=== PATIENT | male | born 1950 | race Asian ===

== ENCOUNTER 2018-01-26 17:07 | Emergency (ER) | payer OTHER, BC ==
--- OUTSIDE RECORDS SUMMARY | 2018-01-26 17:10 | XMS REPORT | Clinical Summary ---
:1950 Author Organization [facility] Address [address] [place] [address] Care Team Providers Name Role Phone Uche Gary MD Primary Care Provider Allergies No Known Allergies Current Medications Prescription Sig. Disp. Refills Start Date End Date Status metFORMIN (GLUCOPHAGE) Take 500 mg by Active 500 mg tablet mouth 2 (two) times a day with meals. atorvastatin (LIPITOR) Take 20 mg by Active 20 MG tablet mouth daily. Default OP ins oxybutynin XL Take 1 tablet 30 tablet 11 11/02/2017 11/02/2018 Active (DITROPAN XL) 10 MG 24 (10 mg total) by hr tabletIndications: mouth daily. NATALIE (stress urinary incontinence), male pregabalin (LYRICA Take by mouth. Active ORAL) duloxetine HCl Take by mouth. Active (DULOXETINE ORAL) Hospital, Clinic, or Other Ordered Dose Route Frequency Start Date End Date Status Facility Administered Medication leuprolide (LUPRON) 22.5 mg IM once 12/07/2017 12/07/2017 Ended injection 22.5 mgIndications: Malignant neoplasm of prostate (HCC) Active Problems Problem Noted Date PSA elevation 11/14/2017 Prostate cancer (HCC) 11/14/2017 Encounters Date Type Specialty Care Team Description 01/23/2018 Office Visit Oncology Angel Oropeza Prostate cancer (HCC) MD Go (Primary Dx) 01/10/2018 Orders Only Oncology Marlena Santa MA Prostate cancer (HCC) (Primary Dx) 12/07/2017 Clinical Support Urology Uche Gary MD Malignant neoplasm of prostate (Primary Dx) 12/07/2017 Procedure visit Urology Rafaela Lindsey MD Urinary frequency ( Primary Dx); NATALIE (stress urinary incontinence), male 12/06/2017 Telephone Urology Lluvia De Oliveira LVN 11/15/2017 Telephone Urology Uche Gary MD 11/14/2017 Office Visit Oncology Angel Oropeza PSA elevation (Primary Dx) ; MD Go Prostate cancer 11/02/2017 Transcribe Orders Urology Uche Gary MD NATALIE (stress urinary incontinence), male (Primary Dx) 10/25/2017 Office Visit Urology Uche Gary MD Malignant neoplasm of prostate (Primary Dx); NATALIE (stress urinary incontinence), male 05/10/2017 Office Visit Urology Jamie Harris MD Malignant neoplasm of Uche Gary MD prostate (Primary Dx) after 01/25/2017 Family History Medical History Relation Name Comments Cancer Father Prostate cancer Father Relation Name Status Comments Father Mother Social History Tobacco Use Types Packs/Day Years Used Date Never Smoker Smokeless Tobacco: Never Used Alcohol Use Drinks/Week oz/Week Comments No Sex Assigned at Date Recorded Not on file Last Filed Vital Signs Vital Sign Reading Time Taken Blood Pressure 110/68 01/23/2018 11:10 AM CDT Pulse 89 01/23/2018 11:10 AM CDT Temperature 36.8 C (98.2 F) 01/23/2018 11:10 AM CDT Respiratory Rate - - Oxygen Saturation 97% 01/23/2018 11:10 AM CDT Inhaled Oxygen Concentration - - Weight 83 kg (183 lb) 01/23/2018 11:10 AM CDT Height - - Body Mass Index - - Plan of Treatment Date Type Specialty Care Team Description 02/01/2018 Office Visit Physical Therapy Rafaela Lindsey MD [address] [facility] [place] [address] Neda Paz, PT 02/08/2018 Office Visit Physical Therapy Rafaela Lindsey MD [address] [facility] [address] [place] [address] Neda Paz, PT 02/28/2018 Clinical Support Urology 05/25/2018 [place] [address] [address] [phone] 06/07/2018 Office Visit Urology Rafaela Lindsey MD [address] [facility] [address] [place] [address] Health Maintenance Due Date Last Done Comments COLON CANCER SCREENING 2002 SHINGRIX VACCINE (#1) 2002 ZOSTER VACCINE 2012 PNEUMOCOCCAL POLYSACCHARIDE VACCINE AGE 65 AND OVER 2017 PNEUMOCOCCAL-13 2017 INFLUENZA VACCINE 10/26/2017 Procedures Procedure Name Priority Date/Time Associated Comments Diagnosis ESTIMATED GFR Routine 01/23/2018 12:20 Results for this PM CDT procedure are in the results section. PSA, ULTRASENSITIVE Routine 01/23/2018 12:20 Prostate cancer Results for this PM CDT (HCC) procedure are in the results section. COMPREHENSIVE METABOLIC Routine 01/23/2018 12:20 Prostate cancer Results for this PANEL PM CDT (HCC) procedure are in the results section. HC COMPLETE BLD COUNT Routine 01/23/2018 12:20 Prostate cancer Results for this W/AUTO DIFF PM CDT (HCC) procedure are in the results section. CYSTOMETROGRAM COMPLEX Routine 12/07/2017 9:16 NATALIE (stress Results for this (CMG-PVES) AM CDT urinary procedure are in incontinence), the results male section. POC URINALYSIS DIPSTICK Routine 12/07/2017 9:16 Urinary frequency Results for this AM CDT procedure are in the results section. UROFLOWMETRY COMPLEX Routine 12/07/2017 9:15 NATALIE (stress (F-P-F) AM CDT urinary incontinence), male VPS INTRA ABD COMPLEX Routine 12/07/2017 9:15 NATALIE (stress (LPP) AM CDT urinary incontinence), male VPS INTERMED Routine 12/07/2017 9:15 NATALIE (stress (FR,EMG,PVES-PABD: AM CDT urinary PDET) incontinence), male FL URETHROGRAM URO Routine 12/07/2017 8:55 NATALIE (stress AM CDT urinary incontinence), male PSA, ULTRASENSITIVE Routine 10/25/2017 2:10 Malignant neoplasm Results for this PM CDT of prostate procedure are in the results section. POC URINALYSIS DIPSTICK Routine 10/25/2017 1:15 Malignant neoplasm Results for this PM CDT of prostate procedure are in the results section. PSA, ULTRASENSITIVE Routine 05/10/2017 1:59 Malignant neoplasm Results for this PM GEAR LAPPER of prostate procedure are in the results section. after 01/25/2017 Results Estimated GFR (01/23/2018 12:20 PM) Estimated GFR >=90 mL/min/1.73 m2 [facility] DEPARTMENT OF Comment: PATHOLOGY AND GENOMIC CatergoryUnitsInterpretation MEDICINE G1 >=90 Normal or high G2 60-89Mildly decreased [id number] to moderately decreased [id number] to severely decreased G4 15-29Severely decreased G5 <15Kidney failure The eGFR was calculated using the Chronic Kidney Disease Epidemiology Collaboration (CKD-EPI) equation. Interpretation is based on recommendations of the National Kidney Foundation-Kidney Disease Outcomes Quality Initiative (NKF-KDOQI) published in 2014. Specimen Plasma specimen Performing Organization Address City/State/Zipcode Phone Number [facility] DEPARTMENT OF PATHOLOGY [address] [place] [address] AND [facility]ICINE PSA, ultrasensitive (01/23/2018 12:20 PM)Only the most recent of3 resultswithin the time period is included. PSA, ultrasensitive <0.01 0.00 - 4.00 [facility] Comment: ng/mL INTERPRETIVE INFORMATION: PSA Ultra Sensitive After radical prostatectomy, the reference interval is less than 0.05 ng/mL if there is no residual disease. In healthy males without prostatectomy, the reference interval is 4.00 ng/mL or less. The lower limit of detection is 0.01 ng/mL. The Mojgan PSA electrochemiluminescent immunoassay was used. Results obtained with different assay methods or kits cannot be used interchangeably. The Mojgan PSA method is approved for use as an aid in the detection of prostate cancer when used in conjunction with a digital rectal exam in men age 50 and older. The Mojgan PSA method is also indicated for the serial measurement of PSA to aid in the prognosis and management of prostate cancer patients. Elevated PSA concentrations can only suggest the presence of prostate cancer until biopsy is performed. PSA concentrations can also be elevated in benign prostatic hyperplasia or inflammatory conditions of the prostate. PSA is generally not elevated in healthy men or men with nonprostatic carcinoma. Performed by [facility], [address] [place] [address] www.[facility] MD, Bebeto Blandon MD - Lab. Director Specimen Serum Performing Organization Address City/State/Zipcode Phone Number [facility] [address] [place] [address] CBC with platelet and differential (01/23/2018 12:20 PM) WBC 6.6 4.5 - 11.0 k/uL [facility] DEPARTMENT OF PATHOLOGY AND GENOMIC MEDICINE RBC 3.64 (L) 4.40 - 6.00 m/uL [facility] OF PATHOLOGY AND GENOMIC MEDICINE HGB 12.4 (L) 14.0 - 18.0 g/dL [facility] OF PATHOLOGY AND GENOMIC MEDICINE HCT 36.8 (L) 41.0 - 51.0 % [facility] OF PATHOLOGY AND GENOMIC MEDICINE MCV 101.1 (H) 82.0 - 100.0 fL [facility] OF PATHOLOGY AND GENOMIC MEDICINE MCH 34.1 (H) 27.0 - 34.0 pg [facility] OF PATHOLOGY AND GENOMIC MEDICINE MCHC 33.7 31.0 - 37.0 g/dL [facility] OF PATHOLOGY AND GENOMIC MEDICINE RDW - SD 46.5 37.0 - 55.0 fL [facility] OF PATHOLOGY AND GENOMIC MEDICINE MPV 9.8 6.9 - 11.0 fL [facility] OF PATHOLOGY AND GENOMIC MEDICINE Platelet count 196 150 - 400 K/uL [facility] OF PATHOLOGY AND GENOMIC MEDICINE Nucleated RBC 0.00 /100 WBC [facility] OF PATHOLOGY AND GENOMIC MEDICINE Neutrophils 61.1 39.0 - 69.0 % [facility] OF PATHOLOGY AND GENOMIC MEDICINE Lymphocytes 27.5 25.0 - 45.0 % [facility] OF PATHOLOGY AND GENOMIC MEDICINE Monocytes 7.4 0.0 - 10.0 % [facility] OF PATHOLOGY AND [facility]OMIC MEDICINE Eosinophils 2.9 0.0 - 5.0 % [facility] OF PATHOLOGY AND [facility]OMIC MEDICINE Basophils 0.6 0.0 - 1.0 % [facility] OF PATHOLOGY AND [facility]IC MEDICINE Immature granulocytes 0.5 0.0 - 1.0 % [facility] OF PATHOLOGY AND GENOMIC MEDICINE Specimen Blood Performing Organization Address City/State/Zipcode Phone Number [facility] DEPARTMENT OF PATHOLOGY [address] [facility] [place] [address] AND [facility] Comprehensive metabolic panel (01/23/2018 12:20 PM) Sodium 141 135 - 148 mEq/L [facility] OF PATHOLOGY AND [facility] MEDIC[facility] Potassium 4.1 3.5 - 5.0 mEq/L [facility] OF PATHOLOGY AND [facility] MED[facility] Chloride 104 98 - 112 mEq/L [facility]MENT OF PATHOLOGY AND [facility]IC MEDICINE CO2 24 24 - 31 mEq/L [facility] OF PATHOLOGY AND [facility]IC MEDICINE Anion gap 13@ANIO 7 - 15 mEq/L [facility] OF PATHOLOGY AND [facility]IC MEDICINE BUN 17 8 - 23 mg/dL [facility] OF PATHOLOGY AND [facility] MED[facility] Creatinine 0.80 0.70 - 1.20 mg/dL [facility] OF PATHOLOGY AND [facility] Glucose 65 65 - 99 mg/dL [facility] OF PATHOLOGY AND [facility] Calcium 10.0 8.8 - 10.2 mg/dL [facility] OF PATHOLOGY AND [facility] Protein 8.0 6.3 - 8.3 g/dL [facility] OF PATHOLOGY AND [facility] Albumin 4.7 3.5 - 5.0 g/dL [facility] OF PATHOLOGY AND GENOMIC MEDICINE A/G ratio 1.4 0.7 - 3.8 [facility] OF PATHOLOGY AND [facility] Alkaline phosphatase 117 40 - 129 U/L [facility] OF PATHOLOGY AND [facility] AST 29 10 - 50 U/L [facility] DEPARTMENT OF PATHOLOGY AND GENOMIC MEDICINE ALT 32 5 - 50 U/L [facility]MENT OF PATHOLOGY AND [facility] Total bilirubin 0.4 0.2 - 1.2 mg/dL [facility]MENT OF PATHOLOGY AND [facility] Specimen Plasma specimen Performing Organization Address City/State/Zipcode Phone Number [facility] DEPARTMENT OF PATHOLOGY [address] [place] [address] AND [facility] Cystometrogram complex (CMG-pVes) (12/07/2017 9:16 AM) Narrative Performed At [facility] Procedure Note CC:Stress incontinence (male) This is a 67 y.o. year old male with a history of prostate cancer treated by Dr. Gary. He is over 8 years post-radiation therapy. He had biochemical recurrence, and Dr. Gary did a salvage prostatectomy in 2014. He did well, but his PSA then became detectable. He was started on androgen ablation by his doctors in [facility]. He has mild stress incontinence requiring 1 pad per day. Most days he only has drops of urine on the p ad, other days there is more leakage. He does not endorse urgency. He does not think the leakage occurs necessarily with a full bladder. He has tried Kegel's in the past but not pelvic floor physical therapy. He presents for video [facility]. Uroflow prior to study: Qmax 7 cc/s Voided volume: 43 cc PVR: 10 cc A real-time fluoroscopic-assisted [facility] multi-channel video urodynamics study was performed. The patient was evaluated in the seated position. The vesical catheter was placed through the patient's ure thra. Abdominal and vesical pressures were zeroed before beginning the study. An initial fill rate of 20 cc/min was used. The bladder was visualized during intervals while filling with radiopaque contrast. Filling phase: 1. Volume of first sensation: 184 cc, first desire: 192 cc, strong desire: 283 cc 2. Normal compliance 3. Maximum cystometric capacity: 295 cc 4. No leak with cough and Valsalva 5. No detrusor overactivity Pressure/flow phase: 1. Qmax 6 cc/sec 2. Pdet Qmax: 46 cm H20 3. Some abdominal straining 4. PVR: 0 cc EMG: Synergistic Fluoroscopy: 1. No evidence of bilateral VUR 2. Smooth walled bladder 3. Bladder neck funnels with voiding Impression: Stress urinary incontinence by history only - no demonstrable stress incontinence on VUDS Normal sensation, no detrusor overactivity, no NATALIE, normal compliance, slightly decreased capacity. Empties well with abdominal straining. Plan: I discussed the VUDS study with the patient. Given very mild amount of leakage patient is a better candidate for pelvic floor physical therapy at this time, as opposed to artificial urinary sphincter. Jasmin arredondo is not a candidate for male sling as he is post-radiation. Pelvic floor physical therapy was discussed with the patient and his and they agreed to proceed. He will have a return visit in 6 months to gauge efficacy of PFPT to treat incontinence. If he still has bothersome incontinence after PFPT, will consider surgical intervention at that time. We may consider male sling (although with the history of XRT his success would be lower) I have reviewed the notes, assessments, and/or procedures performed by my fellow/resident, I concur with her/his documentation of Peterson Dupont. I personally interviewed and examined this patient and prepared the history and physical examination note myself. Rafaela Lindsey M.D. [employer], Department of Urology Director of Research, [facility] Director of [facility] [address], [address] [place], [place] [address] Appts: [phone] POC urinalysis dipstick (12/07/2017 9:16 AM)Only the most recent of2 resultswithin the time period is included. Color urine, POC Yellow Clarity urine, POC Clear Glucose urine, POC Negative Negative Bilirubin urine, POC Negative Negative Ketones urine, POC Negative Negative Specific gravity urine, POC 1.020 1.005 - 1.030 Blood urine, POC Negative Negative pH urine, POC 6.5 5.0, 5.5, 6.0, 6.5, 7.0, 7.5, 8.0, 8.5 Protein urine, POC Negative Negative Urobilinogen urine, POC <2.0 <2.0 Nitrite urine, POC Negative Negative Leukocyte esterase urine, POC Negative Negative Specimen Urine Uroflowmetery complex (F-P-F) (12/07/2017 9:15 AM)VPS intra abd complex (LPP) ( 12/07/2017 9:15 AM)VPS intermed (FR, EMG, Pves-Pabd: pdet) (12/07/2017 9:15 AM )FL URETHROGRAM URO (12/07/2017 8:55 AM)after 01/25/2017 Insurance Payer Benefit Plan / Group Subscriber ID Type Phone Address MEDICARE MEDICARE PART A AND B xxxxxxxxxxx Medicare [place], [place] BCBS BCBS CHOICE PPO/[employer] EM[employer] PPO xxxxxxxxxxxx PPO
--- NOTE | 2018-01-26 17:58 | EDPHYS ---
Physician Documentation [facility] Unit Name: Carmen Flower Age: 67 yrs Sex: Male : 1950 Arrival Date: 01/26/2018 Time: 17:09 Bed 24 Private MD: ED Physician Stanton Tracey HPI: 01/26 17:59 This 67 yrs old Male presents to ER via Ambulatory with complaints of Laceration kb To Head. 17:59 The patient has a laceration related to: hit head on wood deck when doing yard work kb occurred outdoors, and there are no complicating factors. The injury was accidental. The laceration(s) is(are) located on the scalp. Onset: The symptoms/episode began/occurred just prior to arrival. Associated signs and symptoms: The patient has no apparent associated signs or symptoms. The patient has not experienced similar symptoms in the past. The patient has not recently seen a physician. Historical: - Allergies: 17:14 No Known Allergies; sv - PMHx: 17:14 Prostate cancer; High Cholesterol; Diabetes - NIDDM; Lupus; sv - PSHx: 17:14 Prostatectomy; sv - Immunization history:: Flu vaccine is up to date. - Social history:: Smoking status: Patient/guardian denies using tobacco. - Ebola Screening: : No symptoms or risks identified at this time. ROS: 17:58 Constitutional: Negative for fever, chills, and weight loss, Eyes: Negative for injury, kb pain, redness, and discharge, ENT: Negative for injury, pain, and discharge, Neck: Negative for injury, pain, and swelling, Cardiovascular: Negative for chest pain, palpitations, and edema, Respiratory: Negative for shortness of breath, cough, wheezing, and pleuritic chest pain, Abdomen/GI: Negative for abdominal pain, nausea, vomiting, diarrhea, and constipation, Back: Negative for injury and pain, : Negative for injury, bleeding, discharge, and swelling, MS/Extremity: Negative for injury and deformity, Neuro: Negative for headache, weakness, numbness, tingling, and seizure. 17:58 Skin: Positive for laceration(s), of the scalp. Exam: 17:58 Constitutional: This is a well developed, well nourished patient who is awake, alert, kb and in no acute distress. Head/Face: Normocephalic, atraumatic. Eyes: Pupils equal round and reactive to light, extra-ocular motions intact. Lids and lashes normal. Conjunctiva and sclera are non-icteric and not injected. Cornea within normal limits. Periorbital areas with no swelling, redness, or edema. ENT: Nares patent. No nasal discharge, no septal abnormalities noted. Tympanic membranes are normal and external auditory canals are clear. Oropharynx with no redness, swelling, or masses, exudates, or evidence of obstruction, uvula midline. Mucous membranes moist. Neck: Trachea midline, no thyromegaly or masses palpated, and no cervical lymphadenopathy. Supple, full range of motion without nuchal rigidity, or vertebral point tenderness. No Meningismus. Chest/axilla: Normal chest wall appearance and motion. Nontender with no deformity. No lesions are appreciated. Cardiovascular: Regular rate and rhythm with a normal S1 and S2. No gallops, murmurs, or rubs. Normal PMI, no JVD. No pulse deficits. Respiratory: Lungs have equal breath sounds bilaterally, clear to auscultation and percussion. No rales, rhonchi or wheezes noted. No increased work of breathing, no retractions or nasal flaring. Abdomen/GI: Soft, non-tender, with normal bowel sounds. No distension or tympany. No guarding or rebound. No evidence of tenderness throughout. MS/ Extremity: Pulses equal, no cyanosis. Neurovascular intact. Full, normal range of motion. Neuro: Awake and alert, GCS 15, oriented to person, place, time, and situation. Cranial nerves II-XII grossly intact. Motor strength 5/5 in all extremities. Sensory grossly intact. Cerebellar exam normal. Normal gait. 17:58 Skin: injury, laceration(s), the wound is approximately 5 cm(s), of the scalp, that can be described as clean, no foreign body, linear, without bleeding. Vital Signs: 17:14 BP 115 / 84; Pulse 106; Resp 18; Temp 97; Pulse Ox 100% ; Weight 81.65 kg; Height 5 ft. sv 7 in. (170.18 cm); Pain 1/10; 17:51 BP 110 / 87; Pulse 93; Pulse Ox 98% on R/A; Pain 1/10; rv 18:11 BP 108 / 83; Pulse 94; Pulse Ox 98% on R/A; rv 17:14 Body Mass Index 28.19 (81.65 kg, 170.18 cm) sv Laceration: 17:57 Wound Repair of 5cm ( 2.0in ) subcutaneous laceration to scalp. Linear shaped.. Distal kb neuro/vascular/tendon intact. Wound prep: Extensive cleansing with hibiclenz by nurse, Wound irrigation with saline by nurse. Skin closed with 4 1-0 [place] using staple gun. Dressed with Neosporin. Patient tolerated well. MDM: 17:22 Patient medically screened. kb 17:57 Data reviewed: vital signs, nurses notes. Data interpreted: Pulse oximetry: on room air kb is 98 %. Interpretation: acceptable. Counseling: I had a detailed discussion with the patient and/or guardian regarding: the historical points, exam findings, and any diagnostic results supporting the discharge/admit diagnosis, the need for outpatient follow up, a family practitioner, to return to the emergency department if symptoms worsen or persist or if there are any questions or concerns that arise at home. 01/26 17:27 Order name: Wound Care; Complete Time: 17:44 kb Administered Medications: No medications were administered Disposition: 18:54 Co-signature as Attending Physician, Stanton Tracey MD. rn Disposition: 01/26/18 17:58 Discharged to Home. Impression: Laceration without foreign body of scalp, Superficial injury of head. - Condition is Stable. - Discharge Instructions: Laceration Care, Adult, [id number], Head Injury, Adult, [id number]. - Medication Reconciliation Form, Thank You Letter, Antibiotic Education, Prescription Opioid Use form. - Follow up: Emergency Department; When: As needed; Reason: Worsening of condition. Follow up: Private Physician; When: 2 - 3 days; Reason: Recheck today's complaints, Continuance of care, Re-evaluation by your physician. Signatures: Lydia Hernandez, ARTHUR ARANDA-Magi Holden RN RN sv Nieto, Roman, MD MD rn Vicente, Ronaldo, RN RN rv Corrections: (The following items were deleted from the chart) 18:11 17:58 01/26/2018 17:58 Discharged to Home. Impression: Laceration without foreign body rv of scalp; Superficial injury of head. Condition is Stable. Forms are Medication Reconciliation Form, Thank You Letter, Antibiotic Education, Prescription Opioid Use. Follow up: Emergency Department; When: As needed; Reason: Worsening of condition. Follow up: Private Physician; When: 2 - 3 days; Reason: Recheck today's complaints, Continuance of care, Re-evaluation by your physician. kb
--- NOTE | 2018-01-26 17:58 | ER ---
Nurse's Notes [facility] Name: Carmen Flower Age: 67 yrs Sex: Male : 1950 Arrival Date: 01/26/2018 Time: 17:09 Bed 24 Private MD: Diagnosis: Laceration without foreign body of scalp;Superficial injury of head Presentation: 01/26 17:13 Presenting complaint: Patient states: top of head laceration by a wooden deck. Booker sv LOC. Bleeding controlled. Transition of care: patient was not received from another setting of care. Complicating Factors: There are no complicating factors for this patient. Onset of symptoms was January 26, 2018. Care prior to arrival: None. 17:13 Method Of Arrival: Ambulatory sv 17:13 Acuity: HARRIET 4 sv 17:51 Risk Assessment: Do you want to hurt yourself or someone else? Patient reports no rv desire to harm self or others. Initial Sepsis Screen: Does the patient meet any 2 criteria? No. Patient's initial sepsis screen is negative. Does the patient have a suspected source of infection? No. Patient's initial sepsis screen is negative. Historical: - Allergies: 17:14 No Known Allergies; sv - PMHx: 17:14 Prostate cancer; High Cholesterol; Diabetes - NIDDM; Lupus; sv - PSHx: 17:14 Prostatectomy; sv - Immunization history:: Flu vaccine is up to date. - Social history:: Smoking status: Patient/guardian denies using tobacco. - Ebola Screening: : No symptoms or risks identified at this time. Screenin:51 Abuse screen: Denies threats or abuse. Denies injuries from another. Nutritional rv screening: No deficits noted. Tuberculosis screening: No symptoms or risk factors identified. Fall Risk None identified. Assessment: 17:20 General: Appears in no apparent distress. comfortable, Behavior is calm, cooperative. rv 17:20 Pain: Complains of pain in head. Neuro: Level of Consciousness is awake, alert, obeys rv commands, Oriented to person, place, time, situation. Cardiovascular: Capillary refill < 3 seconds. Respiratory: Airway is patent. GI: No signs and/or symptoms were reported involving the gastrointestinal system. : No signs and/or symptoms were reported regarding the genitourinary system. EENT: No signs and/or symptoms were reported regarding the EENT system. Derm: Wound noted head. Musculoskeletal: Reports pain in head (wound). Injury Description: Laceration sustained to scalp is clean, 2.6 to 7.5 cm long, not bleeding. Vital Signs: 17:14 BP 115 / 84; Pulse 106; Resp 18; Temp 97; Pulse Ox 100% ; Weight 81.65 kg; Height 5 ft. sv 7 in. (170.18 cm); Pain 1/10; 17:51 BP 110 / 87; Pulse 93; Pulse Ox 98% on R/A; Pain 1/10; rv 18:11 BP 108 / 83; Pulse 94; Pulse Ox 98% on R/A; rv 17:14 Body Mass Index 28.19 (81.65 kg, 170.18 cm) sv ED Course: 17:09 Patient arrived in ED. mr 17:13 Triage completed. sv 17:15 Arm band placed on. sv 17:22 L[facility]-C [facility]. kb 17:22 Stanton Tracey MD is Attending Physician. kb 17:51 Patient has correct armband on for positive identification. Bed in low position. Call rv light in reach. Side rails up X 1. Adult w/ patient. Pulse ox on. NIBP on. 17:52 Assist provider with laceration repair on scalp that was between 2.6 to 7.5 cm using rv ely. Set up tray. Performed by Lydia GIBSON Dressed with 4X4s, Patient tolerated well. Wound care: to laceration located on scalp was cleaned with Hibiclens, irrigated with normal saline, dressed with 4X4s, Patient tolerated well. 18:10 Patient did not have IV access during this emergency room visit. rv Administered Medications: No medications were administered Outcome: 17:58 Discharge ordered by . kb 18:10 Discharged to home ambulatory. rv 18:10 Condition: improved 18:10 Discharge instructions given to patient, Instructed on discharge instructions, follow up and referral plans. wound care, Demonstrated understanding of instructions, follow-up care, wound care. 18:11 Patient left the ED. rv Signatures: Lydia Hernandez FNP-C FNP-Ckb Verde, Stephanie, RN RN SanchezRonna mr Prashant Valdez RN RN rv
== END 2018-01-26 18:11 | disposition home or self-care (01) ==
LOC: ER 17:07
PROC: 0JQ00ZZ Repair Scalp Subcutaneous Tissue and Fascia, Open Approach (ICD-10-PCS; principal; 2018-01-26)
DX: S01.01XA Laceration without foreign body of scalp, initial encounter (principal); W22.8XXA Striking against or struck by other objects, initial encounter; Y93.H9 Activity, other involving exterior property and land maintenance, building and construction; Y92.89 Other specified places as the place of occurrence of the external cause
CPT/HCPCS: 99284

== ENCOUNTER 2018-02-03 14:14 | Emergency (ER) | payer OTHER, BC ==
--- OUTSIDE RECORDS SUMMARY | 2018-02-03 14:16 | XMS REPORT | Clinical Summary ---
:1950 Author Organization [facility] Address [address] [place] [address] Care Team Providers Name Role Phone Uche [...] Uche Gary MD prostate (Primary Dx) after 02/02/2017 Family History Medical History Relation Name Comments [...] Treatment Date Type Specialty Care Team Description 02/08/2018 Office Visit Physical Therapy Rafaela Lindsey MD [address] [facility] [address] [place] [address] Neda Paz, PT 02/28/2018 Clinical Support Urology 05/25/2018 [place] [address] [facility] [address] [place] [address] [phone] 06/07/2018 Office Visit Urology Rafaela Lindsey MD [address] [facility] [facility] [address] [place] [address] [phone] Health Maintenance Due Date Last Done Comments [...] 1:59 Malignant neoplasm Results for this PM [employer] of prostate procedure are in the results section. after 02/02/2017 Results Estimated GFR (01/23/2018 12:20 PM) Estimated GFR >=90 mL/min/1.73 m2 [facility] DEPARTMENT OF Comment: PATHOLOGY AND GENOMIC CatergoryUnitsInterpretation MEDICINE G1 >=90 Normal or high G2 60-89Mildly decreased [id number] to moderately decreased [id number] to severely decreased G4 15-29Severely decreased G5 <15Kidney failure The eGFR was calculated using the Chronic Kidney Disease Epidemiology Collaboration (CKD-EPI) equation. Interpretation is based on recommendations of the National Kidney Foundation-Kidney Disease Outcomes Quality Initiative (NKF-KDOQI) published in 2014. Specimen Plasma specimen Performing Organization Address City/State/Zipcode Phone Number [facility] DEPARTMENT OF PATHOLOGY [address] [place] [address] AND GENOMIC MEDICINE PSA, ultrasensitive (01/23/2018 12:20 PM)Only the most recent of3 resultswithin the time period is included. PSA, ultrasensitive <0.01 0.00 - 4.00 [facility] Comment: ng/mL INTERPRETIVE INFORMATION: PSA Ultra [...] or men with nonprostatic carcinoma. Performed by [facility], [address] [place] [address] [email or web address], Bebeto Blandon MD - Lab. Director Specimen Serum Performing Organization Address City/State/Zipcode Phone Number [facility] [place] [address] CBC with platelet and differential (01/23/2018 12:20 PM) WBC 6.6 4.5 - 11.0 k/uL [facility] DEPARTMENT OF PATHOLOGY AND GENOMIC MEDICINE RBC 3.64 (L) 4.40 - 6.00 m/uL [facility] DEPARTMENT OF PATHOLOGY AND GENOMIC MEDICINE HGB 12.4 (L) 14.0 - 18.0 g/dL [facility] DEPARTMENT OF PATHOLOGY AND GENOMIC MEDICINE HCT 36.8 (L) 41.0 - 51.0 % [facility] DEPARTMENT OF PATHOLOGY AND GENOMIC MEDICINE MCV 101.1 (H) 82.0 - 100.0 fL [facility] DEPARTMENT OF PATHOLOGY AND GENOMIC MEDICINE MCH 34.1 (H) 27.0 - 34.0 pg [facility] DEPARTMENT OF PATHOLOGY AND GENOMIC MEDICINE MCHC 33.7 31.0 - 37.0 g/dL [facility] DEPARTMENT OF PATHOLOGY AND GENOMIC MEDICINE RDW - SD 46.5 37.0 - 55.0 fL [facility] DEPARTMENT OF PATHOLOGY AND GENOMIC MEDICINE MPV 9.8 6.9 - 11.0 fL [facility] DEPARTMENT OF PATHOLOGY AND GENOMIC MEDICINE Platelet count 196 150 - 400 K/uL [facility] DEPARTMENT OF PATHOLOGY AND GENOMIC MEDICINE Nucleated RBC 0.00 /100 WBC [facility] DEPARTMENT OF PATHOLOGY AND GENOMIC MEDICINE Neutrophils 61.1 39.0 - 69.0 % [facility] DEPARTMENT OF PATHOLOGY AND GENOMIC MEDICINE Lymphocytes 27.5 25.0 - 45.0 % [facility] DEPARTMENT OF PATHOLOGY AND GENOMIC MEDICINE Monocytes 7.4 0.0 - 10.0 % [facility] DEPARTMENT OF PATHOLOGY AND GENOMIC MEDICINE Eosinophils 2.9 0.0 - 5.0 % [facility] DEPARTMENT OF PATHOLOGY AND GENOMIC MEDICINE Basophils 0.6 0.0 - 1.0 % [facility] DEPARTMENT OF PATHOLOGY AND GENOMIC MEDICINE Immature granulocytes 0.5 0.0 - 1.0 % [facility] DEPARTMENT OF PATHOLOGY AND GENOMIC MEDICINE Specimen Blood Performing Organization Address City/State/Zipcode Phone Number [facility] DEPARTMENT OF PATHOLOGY [address] [place] [address] AND [employer] MEDICINE Comprehensive metabolic panel (01/23/2018 12:20 PM) Sodium 141 135 - 148 mEq/L [facility] DEPARTMENT OF PATHOLOGY AND GENOMIC MEDICINE Potassium 4.1 3.5 - 5.0 mEq/L [facility] DEPARTMENT OF PATHOLOGY AND GENOMIC MEDICINE Chloride 104 98 - 112 mEq/L [facility] DEPARTMENT OF PATHOLOGY AND GENOMIC MEDICINE CO2 24 24 - 31 mEq/L [facility] DEPARTMENT OF PATHOLOGY AND GENOMIC MEDICINE Anion gap 13@ANIO 7 - 15 mEq/L [facility] DEPARTMENT OF PATHOLOGY AND GENOMIC MEDICINE BUN 17 8 - 23 mg/dL [facility] DEPARTMENT OF PATHOLOGY AND GENOMIC MEDICINE Creatinine 0.80 0.70 - 1.20 mg/dL [facility] DEPARTMENT OF PATHOLOGY AND GENOMIC MEDICINE Glucose 65 65 - 99 mg/dL [facility] DEPARTMENT OF PATHOLOGY AND GENOMIC MEDICINE Calcium 10.0 8.8 - 10.2 mg/dL [facility] DEPARTMENT OF PATHOLOGY AND GENOMIC MEDICINE Protein 8.0 6.3 - 8.3 g/dL [facility] DEPARTMENT OF PATHOLOGY AND GENOMIC MEDICINE Albumin 4.7 3.5 - 5.0 g/dL [facility] DEPARTMENT OF PATHOLOGY AND GENOMIC MEDICINE A/G ratio 1.4 0.7 - 3.8 [facility] DEPARTMENT OF PATHOLOGY AND GENOMIC MEDICINE Alkaline phosphatase 117 40 - 129 U/L [facility] DEPARTMENT OF PATHOLOGY AND GENOMIC MEDICINE AST 29 10 - 50 U/L [facility] DEPARTMENT OF PATHOLOGY AND GENOMIC MEDICINE ALT 32 5 - 50 U/L [facility] DEPARTMENT OF PATHOLOGY AND [employer] MEDICINE Total bilirubin 0.4 0.2 - 1.2 mg/dL [facility] DEPARTMENT OF PATHOLOGY AND [employer] MEDICINE Specimen Plasma specimen Performing Organization Address City/State/Zipcode Phone Number [facility] DEPARTMENT OF PATHOLOGY [address] [place] [address] AND [facility] Cystometrogram complex (CMG-pVes) (12/07/2017 9:16 AM) Narrative [...] on androgen ablation by his doctors in [facility]. He has mild stress incontinence requiring [...] cc PVR: 10 cc A real-time fluoroscopic[facility] was performed. The [...] physical examination note myself. Rafaela Lindsey M.D. [employer] Rep[employer]r, Department of Urology Director of Research, [facility] Director of Transitional [facility] [address] [place] [address], [address] [place], [place] [address] Appts: [phone] POC urinalysis dipstick (12/07/2017 9:16 AM)Only the [...] AM )[place] URETHROGRAM URO (12/07/2017 8:55 AM)after 02/02/2017 Insurance Payer Benefit Plan / Group Subscriber ID Type Phone Address MEDICARE MEDICARE PART A AND B xxxxxxxxxxx Medicare [place], [place] BCBS BCBS CHOICE PPO/[employer] PPO xxxxxxxxxxxx PPO
--- NOTE | 2018-02-03 16:37 | ER ---
Nurse's Notes [facility] Name: Carmen Flower Age: 67 yrs Sex: Male : 1950 Arrival Date: 02/03/2018 Time: 14:15 Bed 12 Private MD: Diagnosis: Encounter for removal of ely Presentation: 02/03 14:41 Presenting complaint: Patient states: Would like 4 ely placed in top of head 8 days aj ago removed. No drainage or pain. Transition of care: patient was not received from another setting of care. Onset of symptoms was February 03, 2018. Risk Assessment: Do you want to hurt yourself or someone else? Patient reports no desire to harm self or others. Initial Sepsis Screen: Does the patient meet any 2 criteria? No. Patient's initial sepsis screen is negative. Does the patient have a suspected source of infection? No. Patient's initial sepsis screen is negative. Care prior to arrival: None. 14:41 Method Of Arrival: Ambulatory aj 14:41 Acuity: HARRIET 5 aj Triage Assessment: 14:42 General: Appears in no apparent distress. comfortable, Behavior is calm, cooperative, aj appropriate for age. Pain: Denies pain. Neuro: Level of Consciousness is awake, alert, obeys commands, Oriented to person, place, time, situation, Appropriate for age. Respiratory: Airway is patent Respiratory effort is even, unlabored, Respiratory pattern is regular, symmetrical. Derm: Skin is intact, is healthy with good turgor, Skin is pink, warm \T\ dry. normal. Historical: - Allergies: 14:42 No Known Allergies; aj - PMHx: 14:42 Diabetes - NIDDM; High Cholesterol; Lupus; Prostate Cancer; aj - PSHx: 14:42 Prostatectomy; aj - Immunization history:: Adult Immunizations up to date. - Social history:: Smoking status: Patient/guardian denies using tobacco. - Ebola Screening: : Patient negative for fever greater than or equal to 101.5 degrees Fahrenheit, and additional compatible Ebola Virus Disease symptoms Patient denies exposure to infectious person Patient denies travel to an Ebola-affected area in the 21 days before illness onset No symptoms or risks identified at this time. Vital Signs: 14:42 BP 117 / 81; Pulse 98; Resp 17; Temp 97.7; Pulse Ox 99% on R/A; Weight 81.65 kg; Height aj 5 ft. 7 in. (170.18 cm); 14:42 Body Mass Index 28.19 (81.65 kg, 170.18 cm) aj ED Course: 14:15 Patient arrived in ED. mr 14:42 Triage completed. aj 14:42 Arm band placed on left wrist. Patient placed in waiting room, Patient notified of wait aj time. 16:02 Dawit Weston PA is PHCP. cp 16:02 Dawit Kellogg MD is Attending Physician. cp 16:34 Dafne Watkins, RN is Primary Nurse. ss 16:34 No provider procedures requiring assistance completed. Patient did not have IV access ss during this emergency room visit. Administered Medications: No medications were administered Outcome: 16:14 Discharge ordered by MD. cp 16:34 Discharged to home ambulatory. ss 16:34 Condition: good 16:34 Discharge instructions given to patient, family, Instructed on discharge instructions, follow up and referral plans. wound care, Demonstrated understanding of instructions, follow-up care, medications. 16:34 Patient left the ED. ss Signatures: Pham Fleming, RN RN Ronna Arciniega mr Dafne Watkins, RN RN ss Dawit Weston PA PA cp
--- NOTE | 2018-02-03 16:37 | EDPHYS ---
Physician Documentation [facility] Name: Carmen Flower Age: 67 yrs Sex: Male : 1950 Arrival Date: 02/03/2018 Time: 14:15 Bed 12 Private MD: Dawit Campbell HPI: 02/03 16:12 This 67 yrs old Male presents to ER via Ambulatory with complaints of Suture cp Removal. 16:12 The patient has ely on the scalp. Previous treatment: The patient was initially cp treated 8 day(s) ago, the care was rendered at [facility], Treatment type: The patient's original treatment included ely. Sutures/ely progress: The patient has no c/o's. The wound is well-healing with no redness, swelling, discharge, or dehiscence reported. Historical: - Allergies: 14:42 No Known Allergies; aj - PMHx: 14:42 Diabetes - NIDDM; High Cholesterol; Lupus; Prostate Cancer; aj - PSHx: 14:42 Prostatectomy; aj - Immunization history:: Adult Immunizations up to date. - Social history:: Smoking status: Patient/guardian denies using tobacco. - Ebola Screening: : Patient negative for fever greater than or equal to 101.5 degrees Fahrenheit, and additional compatible Ebola Virus Disease symptoms Patient denies exposure to infectious person Patient denies travel to an Ebola-affected area in the 21 days before illness onset No symptoms or risks identified at this time. ROS: 16:13 All other systems are negative. cp Exam: 16:13 Skin: Wound recheck: Staple laceration closure: the edges are well approximated, no cp evidence of dehiscence, no drainage, no erythema, no swelling. Vital Signs: 14:42 BP 117 / 81; Pulse 98; Resp 17; Temp 97.7; Pulse Ox 99% on R/A; Weight 81.65 kg; Height aj 5 ft. 7 in. (170.18 cm); 14:42 Body Mass Index 28.19 (81.65 kg, 170.18 cm) aj MDM: 16:02 Patient medically screened. cp 16:13 Data reviewed: vital signs, nurses notes, and as a result, I will discharge patient. cp 16:13 Counseling: I had a detailed discussion with the patient and/or guardian regarding: the cp historical points, exam findings, and any diagnostic results supporting the discharge/admit diagnosis, to return to the emergency department if symptoms worsen or persist or if there are any questions or concerns that arise at home. Administered Medications: No medications were administered Disposition: 16:35 Chart complete. cp Disposition: 02/03/18 16:14 Discharged to Home. Impression: Encounter for removal of ely. - Condition is Stable. - Discharge Instructions: Stitches, [place], or Adhesive Wound Closure. - Medication Reconciliation Form, Thank You Letter, Antibiotic Education, Prescription Opioid Use form. - Follow up: Emergency Department; When: As needed; Reason: Worsening of condition. - Problem is new. - Symptoms have improved. Addendum: 02/06/2018 06:51 Co-signature as Attending Physician, Dawit Kellogg MD I agree with the assessment and c alfonso plan of care. Signatures: Pham Fleming, RN RN Dawit Rdz MD MD cha Smirch, Shelby, RN RN ss Page, Corey, PA PA cp Corrections: (The following items were deleted from the chart) 02/03 16:34 16:14 02/03/2018 16:14 Discharged to Home. Impression: Encounter for removal of ss ely. Condition is Stable. Forms are Medication Reconciliation Form, Thank You Letter, Antibiotic Education, Prescription Opioid Use. Follow up: Emergency Department; When: As needed; Reason: Worsening of condition. Problem is new. Symptoms have improved. cp
== END 2018-02-03 16:34 | disposition home or self-care (01) ==
LOC: ER 14:14
DX: Z48.02 Encounter for removal of sutures (principal)
CPT/HCPCS: 99281